=== PATIENT | female | born 1970 | race Caucasian/White ===

== ENCOUNTER 2019-06-27 08:45 | Emergency (ER) | payer BC ==
[2019-06-27 09:31] VITALS: BP 119/70
--- NOTE | 2019-06-27 09:44 | UC ---
Respiratory Complaint HPI - HPI Summary HPI Summary: Per immigration specialist: "ear pain with swallowing, slight cough, sinus pressure." -ear pressure started yesterday. sinus pressure started today. -no fevers/chills. + nasal discharge -dawood was born yesterday. she was there for delivery but didnt hold the baby bc of cold sx. -denies asthma. no wheezing - History of Current Complaint Chief Complaint: UCRespiratory Stated Complaint: B/L EAR, SINUS, COMPLAINT Time Seen by Provider: 06/27/19 09:28 Pain Intensity: 6 - Allergies/Home Medications Allergies/Adverse Reactions: Allergies Allergy/AdvReac Type Severity Reaction Status Date / Time No Known Allergies Allergy Verified 06/27/19 09:19 PMH/Surg Hx/FS Hx/Imm Hx Previously Healthy: Yes Endocrine History: Diabetes Cardiovascular History: Hypertension - Surgical History Surgical History: Yes Surgery Procedure, Year, and Place: Lap band 2010. Hysterectomy 2010 - Family History Known Family History: Negative: Respiratory Disease - no asthma - Social History Alcohol Use: None Substance Use Type: None Smoking Status (MU): Never Smoked Tobacco Review of Systems All Other Systems Reviewed And Are Negative: Yes Constitutional: Negative: Fever, Chills, Fatigue Skin: Positive: Negative. Negative: Rash Eyes: Positive: Negative. Negative: Drainage, Eye Redness, Photophobia ENT: Positive: Negative, Sore Throat, Ear Ache, Nasal Discharge, Sinus Congestion, Sinus Pain/Tenderness Respiratory: Negative: Shortness Of Breath, Cough Cardiovascular: Positive: Negative. Negative: Palpitations, Chest Pain Gastrointestinal: Positive: Negative. Negative: Abdominal Pain, Vomiting, Nausea Genitourinary: Positive: Negative. Negative: Dysuria Motor: Positive: Negative Neurovascular: Positive: Negative Musculoskeletal: Positive: Negative Neurological: Positive: Negative Psychological: Positive: Negative Is Patient Immunocompromised?: No Physical Exam Triage Information Reviewed: Yes Appearance: Well-Appearing, No Pain Distress, Well-Nourished - very pleasant Vital Signs: Initial Vital Signs Temp 97 F 06/27/19 09:23 Pulse 81 06/27/19 09:23 Resp 18 06/27/19 09:23 BP 119/70 06/27/19 09:23 Pulse Ox 99 06/27/19 09:23 Vital Signs Reviewed: Yes Eye Exam: Normal ENT Exam: Normal ENT: Positive: Pharyngeal erythema - midl w/ + PND, Nasal congestion, Nasal drainage, TMs normal, Uvula midline. Negative: TM bulging, TM dull, TM red, Tonsillar swelling, Tonsillar exudate, Sinus tenderness Dental Exam: Normal Neck exam: Normal Neck: Positive: Supple, Nontender, No Lymphadenopathy Respiratory Exam: Normal Respiratory: Positive: Lungs clear, Normal breath sounds, No respiratory distress, No accessory muscle use. Negative: Crackles, Rhonchi, Stridor, Wheezing Cardiovascular Exam: Normal Cardiovascular: Positive: RRR Abdominal Exam: Normal Abdomen Description: Positive: Nontender Musculoskeletal Exam: Normal Neurological Exam: Normal Psychological Exam: Normal Skin Exam: Normal Skin: Negative: Rashes Respiratory Course/Dx - Course Course Of Treatment: no e/o bacterial infection. sx less than 24 hrs. no fever, she is contagious and is aware not to go near the or orthers assoc until sx resolved - Differential Dx/Diagnosis Differential Diagnosis/HQI/PQRI: Bronchitis, Laryngitis, Lower Resp Infection, Sinusitis Provider Diagnosis: Upper respiratory infection Discharge ED - Sign-Out/Discharge Documenting (check all that apply): Patient Departure All imaging exams completed and their final reports reviewed: No Studies - Discharge Plan Condition: Stable Disposition: HOME Patient Education Materials: Upper Respiratory Infection (ED) Referrals: Ines Rosales NP [Primary Care Provider] - 2 Weeks Additional Instructions: There is no evidence of any bacterial infection at this time. You are still contagious, so you should not be near your grandchild unfortunately. Drink plenty of fluids and rest. Using flonase nasal spray OTC can be helpful to relieve your ear symptoms. - Billing Disposition and Condition Condition: STABLE Disposition: Home
== END 2019-06-27 09:53 | disposition home or self-care (01) ==
LOC: UCCORT 08:45
DX: J06.9 Acute upper respiratory infection, unspecified (principal); E11.9 Type 2 diabetes mellitus without complications; I10 Essential (primary) hypertension
CPT/HCPCS: 99211; G0463